=== PATIENT | female | born 1935 | race Hispanic/Latino ===

== ENCOUNTER 2019-04-24 16:52 | Emergency (ER) | payer OTHER ==
[~2019-04-24] VITALS: Ht 162.6 cm; Wt 70.8 kg
[~2019-04-24 16:52] MED LIST: BENICAR20 MG PO; PRAVASTATIN SOD40 MG PO
--- OUTSIDE RECORDS SUMMARY | 2019-04-24 16:55 | XMS REPORT ---
Author Carl Anthony [facility] eClinicalWorks Address Unknown Phone Unavailable Care Team Providers Care Painting Department Supervisor Name Role Phone Carl Elizabeth CP Unavailable Allergies No Known Allergies Problems Problem Type Condition Code Onset Dates Condition Status Problem Benign paroxysmal vertigo, bilateral H81.13 Active Problem Deviated nasal septum J34.2 Active Problem Hearing loss, Sensorineural - Asymmetrical H90.5 Active Problem Tinnitus, right ear H93.11 Active Medications No Known Medications Results No Known Results Summary Purpose eClinicalWorks Submission
--- OUTSIDE RECORDS SUMMARY | 2019-04-24 16:55 | XMS REPORT ---
Author Carl Anthony [facility] eClinicalWorks Address Unknown Phone Unavailable Care Team Providers Care Porcelain Enameler Name Role Phone Carl Elizabeth CP Unavailable Allergies No Known Allergies Problems Problem Type Condition Code Onset Dates Condition Status Problem Tinnitus, right ear H93.11 Active Medications No Known Medications Results No Known Results Summary Purpose eClinicalWorks Submission
--- OUTSIDE RECORDS SUMMARY | 2019-04-24 16:55 | XMS REPORT ---
Author Carl Anthony [facility] eClinicalWorks Address Unknown Phone Unavailable Care Team Providers Care Job Site Superintendent Name Role Phone Carl Elizabeth CP Unavailable Allergies, Adverse Reactions, Alerts Substance Reaction Event Type N.K.D.A. Info Not Available Non Drug Allergy Problems Problem Type Condition Code Onset Dates Condition Status Assessment Tinnitus, right ear H93.11 Active Assessment Hearing loss, Sensorineural - Asymmetrical H90.5 Active Problem Tinnitus, right ear H93.11 Active Assessment Deviated nasal septum J34.2 Active Medications Medication Code System Code Instructions Start Date End Date Status Dosage Olmesartan Medoxomil [facility] [address]-34 Active not defined Neomycin-Polymyxin NDC 0 Active not defined Olmesartan Medoxomil-HCTZ [facility] [place] [address]-89 Active not defined Loratadine [facility] [address]-51 Active not defined Results No Known Results Summary Purpose Ripple TVinicalWorks Submission
--- OUTSIDE RECORDS SUMMARY | 2019-04-24 16:55 | XMS REPORT ---
Author Carl Anthony [facility] eClinicalWorks Address Unknown Phone Unavailable Care Team Providers Care Tube Splicer Name Role Phone Carl Elizabeth CP Unavailable Allergies, Adverse Reactions, Alerts Substance Reaction Event Type N.K.D.A. Info Not Available Non Drug Allergy Problems Problem Type Condition Code Onset Dates Condition Status Assessment Deviated nasal septum J34.2 Active Problem Benign paroxysmal vertigo, bilateral H81.13 Active Problem Deviated nasal septum J34.2 Active Problem Hearing loss, Sensorineural - Asymmetrical H90.5 Active Assessment Tinnitus, right ear H93.11 Active Assessment Benign paroxysmal vertigo, bilateral H81.13 Active Problem Tinnitus, right ear H93.11 Active Assessment Hearing loss, Sensorineural - Asymmetrical H90.5 Active Medications Medication Code System Code Instructions Start Date End Date Status Dosage Olmesartan Medoxomil [facility] [address]-19 Active not defined Neomycin-Polymyxin NDC 0 Active not defined Loratadine [facility] [address]-24 Active not defined Olmesartan Medoxomil-HCTZ [facility] [address]-72 Active not defined Results No Known Results Summary Purpose eClinicalWorks Submission
--- OUTSIDE RECORDS SUMMARY | 2019-04-24 16:55 | XMS REPORT | Clinical Summary ---
Author Author [facility] Address Unknown Phone Unavailable Care Team Providers Care Fringe Knotter Name Role Phone Christoph Cha MD PCP Allergies No Known Allergies Medications End Date Status Medication Sig Dispensed Refills Start Date Active olmesartan-hydrochlorothi TK 1 T PO QD 0 azide (BENICAR HCT) 7 20-12.5 mg per tablet Active Saccharomyces boulardii Take 250 mg 0 (FLORASTOR) 250 mg by mouth 2 capsule (two) times a day. Active Problems No known active problems Social History Date Tobacco Use Types Packs/Day Years Used Never Smoker Smokeless Tobacco: Never Used Alcohol Use Drinks/Week oz/Week Comments No Sex Assigned at Date Recorded Not on file Industry Job Start Date Occupation Not on file Not on file Not on file Travel End Travel History Travel Start No recent travel history available. Last Filed Vital Signs Not on file Plan of Treatment Health Maintenance Due Date Last Done Comments SHINGLES VACCINES (#1) 12/28/1987 65+ PNEUMOCOCCAL VACCINE 2002 (1 of 2 - PCV13) INFLUENZA VACCINE 05/29/2019 Results Not on fileafter 04/23/2018 Insurance Type Payer Benefit Subscriber ID Effective Phone Address Plan / Dates Group HMO [employer] TEX[employer] xxxxxxxxx [id number] [id number] resent (Home) [place] [address] Advance Directives Patient has advance care planning documents on file. For more information, krishna evans contact: [facility] [employer] [address] [place] [phone]
--- OUTSIDE RECORDS SUMMARY | 2019-04-24 16:55 | XMS REPORT ---
Author Author [facility] Address Unknown Phone Unavailable Care Team Providers Care Mop Man Name Role Phone UNKNOWN, REFFERING PP Unavailable Problems This patient has no known problems. Allergies, Adverse Reactions, Alerts This patient has no known allergies or adverse reactions. Medications This patient has no known medications. Encounters Start Date/Time End Date/Time Encounter Type Admission Type Attending Clinicians Care Facility Care Department Encounter ID 2017-10-30 10:52:00 2017-10-30 10:52:00 Emergency [facility] [id number] Results Test Description Test Time Test Comments Text Results Atomic Results Result Comments XR TIBIA/FIBULA.-RIGHT 2017-10-30 11:28:57 EXAM: XR TIBIA AND FIBULA 2 VIEWS, RIGHTINDICATION: Status post fallCOMPARISON: None availableTECHNIQUE: AP and lateral views of the right tibia and fibula.FINDINGS: No acute fracture or dislocation is identified. No osseous lesions. Nosoft tissue abnormality is identified.IMPRESSION: No acute osseous abnormality of the right tibia and fibula.LOCATION: [facility] XR HIPS, BILAT TO INCL PELVIS 2017-10-30 11:27:50 EXAM: BILATERAL HIPS 2 VIEWS, 1 VIEW OF THE PELVISINDICATION: Status post fallCOMPARISON: None availableTECHNIQUE: AP and frog-leg views of the pelvis.FINDINGS: No acute fracture or dislocation is identified. There is joint spacenarrowing of both hip joints with subchondral sclerosis. The sacroiliacjoints and pubic symphysis are in normal alignment. There is sclerosisof the sacroiliac joints and pubic symphysis. There are degenerativechanges of the lower lumbar spine. No soft tissue abnormality isidentified.IMPRESSION: 1. No acute osseous abnormality of the pelvis.2. Mild degenerative changes of the hip joints.LOCATION: [facility] XR KNEE 2V.-RIGHT 2017-10-30 11:27:13 EXAM: XR KNEE 2 VIEWS, RIGHTINDICATION: Status post fallCOMPARISON: None availableTECHNIQUE: AP and lateral views of the right knee.FINDINGS: No acute fracture or dislocation is identified. No osseous lesions.There is joint space narrowing with subchondral sclerosis andtricompartment osteophytes. No joint effusion. No soft tissueabnormality is identified.IMPRESSION: No acute abnormality of the right knee. Mild DJD of the right knee.LOCATION: [facility] XR FEMUR 2V.-RIGHT 2017-10-30 11:26:26 EXAM: XR FEMUR 2 VIEWS, RIGHTINDICATION: Status post fallCOMPARISON: None availableTECHNIQUE: AP and lateral views of the right femur.FINDINGS: No acute fracture or dislocation is identified. No osseous lesions.There are degenerative changes of the right hip joint and right kneejoint. There are sclerosis of the right sacroiliac joint and pubicsymphysis. There are degenerative changes of the lower lumbar spine. Nosoft tissue abnormality is identified.IMPRESSION: No acute osseous abnormality of the right femur.LOCATION: [facility]
--- OUTSIDE RECORDS SUMMARY | 2019-04-24 16:55 | XMS REPORT ---
Author Author Chana Seymour Organization eClinicalWorks Address Unknown Phone Unavailable Care Team Providers Care Sales Representative Facility Services Name Role Phone Chana Seymour Unavailable Allergies No Known Allergies Problems Problem Type Condition Code Onset Dates Condition Status Problem Benign paroxysmal vertigo, bilateral H81.13 Active Problem Deviated nasal septum J34.2 Active Problem Hearing loss, Sensorineural - Asymmetrical H90.5 Active Problem Tinnitus, right ear H93.11 Active Medications No Known Medications Results No Known Results Summary Purpose eClinicalWorks Submission
[2019-04-24] MEDS ORDERED: LIDOCAINE 5% PATCH TP ONE (17:15)
[2019-04-24] MEDS ORDERED: METHYLPREDNISOLONE SOD SUCC 125 MG/2ML VIAL IM ONE (17:15)
[2019-04-24] MEDS ORDERED: KETOROLAC TROMETHAMINE 30 MG/ML VIAL IM ONE (17:30)
[2019-04-24] MEDS ORDERED: PREDNISONE20 MG PO (18:31)
[2019-04-24] MEDS ORDERED: LIDOPATCH1 EACH TOP (18:32)
[2019-04-24] MEDS ORDERED: FENTANYL 50 MCG/HR PATCH TOP STA (18:38)
--- NOTE | 2019-04-24 18:43 | NUR ---
WHILE DR NUNEZ WAS SPEAKING WITH FAMILY, FAMILY BECOMES DEMANDING AND ADAMANT THAT PT BE PRESCRIBED FENTANYL PATCH FOR ATRAUMATIC ARM PAIN; DR NUNEZ EXPLAINED TO FAMILY THAT THIS IS NOT NECESSARY DUE TO LACK OF TRAUMA AND FAMILY CONTINUES TO INSIST ON FENTANYL PATCH; DR NUNEZ EXPLAINED THE RISK/BENEFITS TO PT AND FAMILY AND AGAIN STRESSES FENTANYL IS NOT NECESSARY AND FAMILY AGAIN INSISTS ON FENTANYL PATCH
[2019-04-24] MEDS ORDERED: FENTANYL 12MCG/HR PATCH TD SCH (19:00)
== END 2019-04-24 18:59 | disposition home or self-care (01) ==
LOC: ER 16:52
DX: M79.622 Pain in left upper arm (principal); G89.29 Other chronic pain
CPT/HCPCS: 99282; J1885; J2930